=== PATIENT | male | born 1970 | race Caucasian/White ===

== ENCOUNTER 2020-10-26 08:44 | Emergency (ER) | payer OTHER ==
[~2020-10-26] VITALS: Ht 177.8 cm; Wt 124.7 kg
[~2020-10-26 08:44] MED LIST: AMLO-211 PO; LOSA1TAB22 PO; TRAZ50TA66 PO
[2020-10-26 09:06] VITALS: BP 163/83
== END 2020-10-26 09:34 | disposition home or self-care (01) ==
LOC: ED 09:20
DX: Z00.00 Encounter for general adult medical examination without abnormal findings (principal); Z20.822 Contact with and (suspected) exposure to COVID-19
CPT/HCPCS: 99283; U0003; U0005